=== PATIENT | female | born 1990 | race Caucasian/White ===

== ENCOUNTER 2019-09-15 10:07 | Day surgery (SDC) | payer OTHER ==
[~2019-09-15] VITALS: Ht 152.4 cm; Wt 77.5 kg
[~2019-09-15 10:07] MED LIST: LR 1,000 ML IV ONE; NORE1TAB43 PO; VITA100066 PO
[2019-09-15 10:35] LABS: HEMATOCRIT 40.4 % (36.0-47.0); HEMOGLOBIN 13.2 g/dl (12.0-15.5); MEAN CORPUSCULAR HEMOGLOBIN 27.7 pg (27.0-33.0); MEAN CORPUSCULAR HGB CONC 32.7 g/dl (32.0-36.5); MEAN CORPUSCULAR VOLUME 84.9 fl (80.0-96.0); PLATELET COUNT, AUTOMATED 289 10^3/uL (150-450); RED BLOOD COUNT 4.76 10^6/uL (4.00-5.40)
[2019-09-15] MEDS ORDERED: KETOROLAC 60 MG/2 ML VIAL (J1885) As Ordered ONE (10:58)
[2019-09-15] MEDS ORDERED: dexameTHASONE 4 MG/ML 1ML VIAL (J1100) As Ordered ONE (10:58)
[2019-09-15] MEDS ORDERED: ROCURONIUM BROMIDE 50 MG/5 ML VIAL As Ordered ONE (10:58)
[2019-09-15] MEDS ORDERED: propofoL 200 MG/20 ML VIAL As Ordered ONE (10:58)
[2019-09-15] MEDS ORDERED: LIDOCAINE 2% INJ 100 MG/5 ML SDV (FOR ANES.) As Ordered ONE (10:58)
[2019-09-15] MEDS ORDERED: ONDANSETRON 4MG/2ML VIAL (J2405) As Ordered ONE (10:58)
[2019-09-15] MEDS ORDERED: ACETAMINOPHEN 1000MG 100ML IV BTL (OFIRMEV) (J0131 PER 10MG) As Ordered ONE (10:59)
[2019-09-15] MEDS ORDERED: MIDAZOLAM INJ 2 MG/2 ML VIAL (J2250) As Ordered ONE (10:59)
[2019-09-15] MEDS ORDERED: fentaNYL 100 MCG/2 ML INJECTION (J3010) As Ordered ONE ×2 (10:59→12:51)
[2019-09-15] MEDS ORDERED: SCOPOLAMINE 1MG TRANSDERMAL PATCH As Ordered ONE (11:06)
[2019-09-15] MEDS ORDERED: SCOPOLAMINE 1MG TRANSDERMAL PATCH TOP ONE (11:15)
[2019-09-15] MEDS ORDERED: LR 1,000 ML IV ONE (12:00)
[2019-09-15] MEDS ORDERED: BUPIVACAINE HCL 0.25% 30 ML VIAL As Ordered ONE (12:19)
[2019-09-15] MEDS ORDERED: OXYC1TAB23 PO (12:21)
[2019-09-15] MEDS ORDERED: IBUP-1022 PO (12:21)
[2019-09-15] MEDS ORDERED: SUGAMMADEX SODIUM 500 MG/5 ML VIAL (BRIDION) As Ordered ONE (12:46)
[2019-09-15] MEDS ORDERED: KETAMINE HCL 200 MG/20 ML VIAL As Ordered ONE (12:52)
[2019-09-15] MEDS ORDERED: ESMOLOL INJ 100MG/10ML VIAL As Ordered ONE (13:05)
[2019-09-15] MEDS ORDERED: ONDANSETRON 4MG/2ML VIAL (J2405) IV PRN (14:00)
[2019-09-15] MEDS ORDERED: fentaNYL 100 MCG/2 ML INJECTION (J3010) IV PRN (14:00)
[2019-09-15] MEDS ORDERED: oxyCODONE 5MG TAB PO PRN (14:00)
[2019-09-15] MEDS ORDERED: LR 1,000 ML IV SCH ×2 (14:00→15:00)
[2019-09-15] MEDS ORDERED: PERCOCET 5MG/325MG TAB PO PRN (15:00)
[2019-09-15 15:10] VITALS: BP 117/77
--- NOTE | 2019-09-15 21:16 | RO ---
DATE OF PROCEDURE: 09/15/2019 PREPROCEDURE DIAGNOSIS: Undesired fertility. POSTPROCEDURE DIAGNOSIS: Undesired fertility. PROCEDURE: Laparoscopic bilateral salpingectomy. SURGEON: Gavin Pimentel MD INSTRUMENT REPAIR SPECIALIST: ANESTHESIA: General endotracheal. ESTIMATED BLOOD LOSS: 10 mL URINE OUTPUT: 200 mL. FINDINGS: Normal pelvis including uterus, fallopian tubes and ovaries. Normal upper abdomen. DESCRIPTION OF PROCEDURE: The patient was taken to the operating room where general endotracheal anesthesia was induced. She was prepped and draped in a sterile fashion in the dorsal lithotomy position. A Joseph catheter was placed. A sponge stick was placed in the vagina to use as a manipulator. A periumbilical incision was made with a scalpel. A Veress needle was placed through this incision while tenting up on the skin of the abdomen. Intraabdominal location of the Veress needle was assessed with the use of a saline-filled syringe. A pneumoperitoneum was created. The Veress needle was removed. 5 mm trocar using Visiport was inserted through this incision. Two 5 mm suprapubic ports were placed under direct visualization without difficulty. The fallopian tubes were grasped with a grasping instrument. A LigaSure device was used to coagulate and incise broad ligament attachments to the fallopian tubes. The fallopian tubes were then amputated near their origin. Both tubes were removed through the suprapubic ports. The pneumoperitoneum was released. All instruments were removed. The skin was closed with #4-0 Monocryl subcuticular sutures. Sponge, instrument and needle counts were correct.
== END 2019-09-15 15:15 | disposition home or self-care (01) ==
LOC: M SDC 10:07
PROVIDERS: ATTEND Specialist
DX: Z30.2 Encounter for sterilization (principal); M41.9 Scoliosis, unspecified; Z79.899 Other long term (current) drug therapy; Z79.3 Long term (current) use of hormonal contraceptives
CPT/HCPCS: 36415; 58661; 81025; 85027; 88302; J0131; J1100; J1885; J2250; J2405; J3010